=== PATIENT | male | born 1950 | race Caucasian/White ===

== ENCOUNTER 2019-10-29 11:42 | Inpatient (IN) ==
[2019-10-29] MEDS ORDERED: XYLOCAINE 2% VISCOUS ONE (12:49)
[2019-10-29] MEDS ORDERED: ZOFRAN IV ONE (12:50)
[2019-10-29] MEDS ORDERED: MORPHINE IV ONE (12:50)
[2019-10-29] MEDS ORDERED: XYLOCAINE 2% JELLY UROJECT TOP ONE (12:54)
[2019-10-29] MEDS ORDERED: XYLOCAINE 2% JELLY UROJECT ONE ×2 (13:00→13:03)
[2019-10-29 13:46] LABS: BASO# 0.01 X1000 (0.0-0.2); BASO% 0.1 % (0.0-0.8); HEMATOCRIT 26.3 % (42.0-52.0); HEMOGLOBIN 8.1 g/dL (14.0-18.0); IMM GRAN# 0.02 X1000 (0.0-0.04); IMM GRAN% 0.2 % (0.0-0.5); LYMPH# 0.68 X1000 (1.2-3.4); LYMPH% 5.7 % (20.5-51.1); MCH 29.2 PG (27-31); MCHC 30.8 g/dL (33-37); MCV 94.9 FL (81-99); MONO# 0.73 X1000 (0.11-0.59); MONO% 6.1 % (1.7-9.3); MPV 9.4 FL (7.4-10.4); NEUT# 10.46 X1000 (1.4-6.5); NEUT% 87.9 % (42.2-75.2); PLT 323 X1000 (130-400); RBC 2.77 XMIL (4.7-6.1); RDW 13.5 % (11.5-14.5)
[2019-10-29 13:57] LABS: URINE SOURCE CATH
[2019-10-29 14:00] LABS: CALCIUM 8.8 mg/dL (8.8-10.2); CREATININE 2.5 mg/dL (0.7-1.2); POTASSIUM 4.3 mmol/L (3.5-5.1); TOTAL BILIRUBIN 0.54 mg/dL (0.20-1.00)
[2019-10-29 14:00] LABS: COLOR BROWN; SP GRAVITY URINE 1.019; TURBIDITY URINE TURBID (CLEAR)
[2019-10-29 14:03] LABS: UR EPITHELIAL CELLS <10 /HPF (<10); URINE BACTERIA NEGATIVE /HPF; URINE RBC TNTC /HPF (<10); URINE WBC <10 /HPF (<10)
[2019-10-29 14:07] LABS: BILIRUBIN URINE NEGATIVE (NEGATIVE); BLOOD URINE LARGE (NEGATIVE); GLUCOSE URINE NEGATIVE (NEGATIVE); KETONE URINE 10 mg/dL (NEGATIVE); LEUKOCYTES URINE MODERATE (NEGATIVE); NITRITE URINE POSITIVE (NEGATIVE); PH URINE 6.5; PROTEIN URINE 300 mg/dL (NEGATIVE); UROBILINOGEN URINE 2 mg/dL (NORMAL)
[2019-10-29 14:09] LABS: URINE CASTS NONE SEEN
[2019-10-29 14:35] LABS: LYMPHS 8 % (21-51); MONO 4 % (1-9); SEGS 88 % (42-75)
[2019-10-29] MEDS ORDERED: ROCEPHIN 1 GM in NS 50 ML IV ONE (15:32)
--- NOTE | 2019-10-29 15:44 | PROVIDER DOCUMENTATION ---
This chart was entered by Connie Bryan Scribe, acting as scribe for Regis Cramer MD. HPI-Male Problem - General Stated Complaint: MALE Time Seen by Provider: 10/29/19 11:58 Source: patient, family () Allergies/Adverse Reactions: Patient Allergies Allergy/AdvReac Type Severity Reaction Status Date / Time No Known Allergies Allergy Verified 10/29/19 12:12 Home Medications: Home Medication List Medication Instructions Recorded Confirmed Last Taken Type Aspirin 325 mg PO DAILY 10/29/19 10/29/19 Unknown History Cephalexin [Keflex] 500 mg PO 4XDAY #20 cap 10/29/19 Unknown Rx Citalopram [Celexa] 40 mg PO DAILY 10/29/19 10/29/19 Unknown History Ezetimibe [Zetia] 10 mg PO DAILY 10/29/19 10/29/19 Unknown History Ferrous Sulfate [Ferosul] 325 mg PO BID #60 tab 10/29/19 Unknown Rx Levocarnitine [l-Carnitine] 25 gm MC DAILY 10/29/19 10/29/19 Unknown History Niacin E.r. [Niaspan] 500 mg PO DAILY 10/29/19 10/29/19 Unknown History Psyllium Husk [Metamucil] 1 ea PO DAILY 10/29/19 10/29/19 Unknown History Simvastatin 20 mg PO DAILY 10/29/19 10/29/19 Unknown History Tamsulosin [Flomax] 0.4 mg PO DAILY #7 cap 10/29/19 Unknown Rx Telmisartan [Micardis] 40 mg PO DAILY 10/29/19 10/29/19 Unknown History Temazepam [Restoril] 30 mg PO QHS 10/29/19 10/29/19 Unknown History - History of Present Illness-Male Nature of Presenting Problem: 69 yowm presents to the ed with c/o unable to urinate. pt has AAA repair 12 days prior (incision was in rt groin) and was sent home with a [facility] cath. at bedside sts pt has some confused once back home and pulled cath out himself. sts called urology and was told to watch pt and as long as urination was well they could keep the cath out. sts last night some mild hematuria was noted but no pain nad urination was present. this am sts pt woke and passed a golf ball size clot and has been unable to urinate since waking this am. pt on exam is pale and abdomen is distended. Location of Complaint: reports: suprapubic Quality of Pain: reports: fullness Severity in ED: reports: moderate Onset/Duration: reports: this morning Timing: reports: still present, constant Context/Activities at Onset: reports: light activity Urinary Symptoms: reports: hematuria, retention Sexual intercourse history: reports: Not Active Contraception: reports: none Associated Symptoms: reports: denies symptoms Similar Symptoms Previously?: No Recently seen or treated by another doctor?: Yes (sx-Dr Cha urology-Dr Green) Review of Systems - Adult - REVIEW OF SYSTEMS - ADULT Constitutional: denies: chills, fever Eyes: reports: no symptoms reported Ears, Nose, Mouth & Throat: reports: no symptoms reported Cardiovascular: denies: chest pain, palpitations Respiratory: denies: cough, shortness of breath, wheezing Gastrointestinal: reports: see HPI, abdominal pain. denies: diarrhea, nausea, vomiting Genitourinary: reports: see HPI, hematuria, urinary retention Musculoskeletal: denies: back pain, neck pain Integumentary: reports: no symptoms reported Neurological: reports: no symptoms reported Psychiatric: reports: no symptoms reported Endocrine: reports: no symptoms reported Hematologic/Lymphatic: reports: no symptoms reported Allergic/Immunologic: reports: no symptoms reported All Other Systems: Reviewed and Negative Past History - Adult - PAST MEDICAL HISTORY-ADULT Review of Records: reports: Old Records Reviewed, Nursing Assessment Review, Medications Reviewed, Social history reviewed & non-contributory. Major Childhood Illnesses: reports: denies history Cardiovascular: reports: other (AAA) Respiratory: reports: denies history Gastrointestinal: reports: denies history Genitourinary: reports: denies history Musculoskeletal: reports: denies history Neurological: reports: denies history Psychiatric: reports: denies history Endocrine/Immune: reports: denies history Other Conditions: reports: denies history - PRIOR SURGERIES/PROCEDURES Surgical/Procedure History: reports: recent surgery (for AAS repair 12 days prior previous) - IMMUNIZATION STATUS Childhood Immunizations: See Nurse Assessment Flu Vaccine: See Nurse Assessment - FAMILY HISTORY Family History: reviewed, not pertinent - SOCIAL HISTORY Smoking: denies Substance Use: denies Living Situation: family Physical Exam-General - PHYSICAL EXAM-ADULT Initial Vital Signs Reviewed: Yes - CONSTITUTIONAL General Appearance: appears well, alert, mild distress - EYES Eyes: PERRL/EOMI, pink conjunctivae - HEAD, EARS, NOSE, MOUTH & THROAT HENMT: moist mucous membranes - NECK Neck: non-tender, full range of motion, supple, normal inspection - RESPIRATORY Respiratory: chest non-tender, lungs clear, normal breath sounds - CARDIOVASCULAR Cardiovascular: normal peripheral pulses, regular rate, rhythm - CHEST (BREASTS) Chest/Breast: deferred - GASTROINTESTINAL (ABDOMEN) Abdominal Exam: soft, distended, tenderness (with fullness sensation due to lack of urination) - GENITOURINARY Male Genitalia: other (wll healing surgical incision from recent sx) Rectal Exam: deferred Hemoccult Exam: deferred - LYMPHATIC Lymphatic: no adenopathy - MUSCULOSKELETAL Back Exam: no CVA tenderness, no vertebral tenderness Extremity: normal range of motion, non-tender, normal capillary refill - SKIN Integumentary: warm/dry, ecchymosis (seen to left pelvic region), pallor - NEUROLOGIC Neurologic: grossly normal - PSYCHIATRIC Psych/Mental Status: normal mood/affect, normal thought content, normal thought process, oriented x 3 Progress - PLAN OF CARE/RESULTS Progress/Plan/Lab Results: Vital Signs - 8 hr 10/29/19 12:08 Temperature 98.3 F Pulse Rate 76 Respiratory Rate 17 Blood Pressure 150/83 O2 Sat by Pulse Oximetry 99 Laboratory Results - last 24 hr 10/29/19 10/29/19 10/29/19 13:00 13:00 13:30 WBC 11.90 H RBC 2.77 L Hgb 8.1 L Hct 26.3 L MCV 94.9 MCH 29.2 MCHC 30.8 L RDW Std Deviation 13.5 Plt Count 323 MPV 9.4 Immature Gran % (Auto) 0.2 Neut % (Auto) 87.9 H Lymph % (Auto) 5.7 L Coffey % (Auto) 6.1 Eos % (Auto) 0.0 Baso % (Auto) 0.1 Immature Gran # (Auto) 0.02 Neut # (Auto) 10.46 H Lymph # (Auto) 0.68 L Coffey # (Auto) 0.73 H Eos # (Auto) 0.00 Baso # (Auto) 0.01 Segmented Neutrophils 88 H Lymphocytes 8 L Monocytes 4 Sodium 139 Potassium 4.3 Chloride 104 Carbon Dioxide 22 L Anion Gap 13 BUN 23 H Creatinine 2.5 H Estimated GFR/1.73 m2 26 BUN/Creatinine Ratio 9 Glucose 122 H Calculated Osmolality 283 Calcium 8.8 Total Bilirubin 0.54 AST 12 ALT 14 Alkaline Phosphatase 71 Total Protein 6.0 L Albumin 3.0 L Globulin 3.0 Albumin/Globulin Ratio 1.0 Urine Source CATH Urine Color BROWN Urine Turbidity TURBID Urine pH 6.5 Ur Specific [place] 1.019 Urine Protein 300 A Ur Glucose (Stick) NEGATIVE Ur Ketones (Stick) 10 A Urine Blood LARGE A Urine Nitrite POSITIVE A Urine Bilirubin NEGATIVE Urobilinogen Dipstick 2 A Urine Leukocytes MODERATE A Urine WBC (Auto) <10 Urine RBC (Auto) TNTC A U Epithel Cells (Auto) <10 Urine Bacteria (Auto) NEGATIVE Urine Crystals Not Reportable Small Round Cells Not Reportable Urine Casts NONE SEEN Urine Yeast-like Cells Not Reportable Orders Category Date Time Status Bladder Scan and Record Result ORDERED Care 10/29/19 12:03 Active [facility] Insertion ORDERED Care 10/29/19 12:04 Active Irrigate Bladder DIRECTED Care 10/29/19 12:03 Active CBC WITH ELECTRONIC DIFF [HEME] Stat Lab 10/29/19 13:00 Completed COMPREHENSIVE METABOLIC PANEL [CHEM] Stat Lab 10/29/19 13:00 Completed URINALYSIS W/POSS RFLX CULT [URINALYSIS] Stat Lab 10/29/19 13:30 Completed URINE CULTURE [RM] Routine Lab 10/29/19 13:30 Received URINE MANUAL MICROSCOPIC [URINALYSIS] Stat Lab 10/29/19 13:30 Completed CefTRIAXONE [Rocephin] 1 gm Med 10/29/19 15:32 Active 0.9% Sodium Chloride Inj [Ns] 50 ml IV NOW Lidocaine 2% Jelly Appl [Xylocaine 2% Jelly Uroject] Med 10/29/19 13:03 Discontinued 10 ml .ROUTE .STK-MED ONE Lidocaine 2% Jelly Appl [Xylocaine 2% Jelly Uroject] Med 10/29/19 12:54 Discontinued 20 ml TOP NOW ONE Lidocaine 2% Jelly Appl [Xylocaine 2% Jelly Uroject] Med 10/29/19 13:00 Discontinued 30 ml .SEE ORDER DIRECTOR CORPORATE SALES ONE Lidocaine 2% Viscous [Xylocaine 2% Viscous] Med 10/29/19 12:49 Discontinued 30 ml .SEE ORDER DIRECTOR CORPORATE SALES ONE Morphine Med 10/29/19 12:50 Discontinued 4 mg IV NOW ONE Ondansetron [Zofran] Med 10/29/19 12:50 Discontinued 4 mg IV NOW ONE Result Diagrams: 10/29/19 13:00 10/29/19 13:00 - REASSESSMENT Reassessment #1 Time Reassessed: 12:42 (pt has greater then 1000 on bladder scan and unable to urinate ) Status: unchanged Reassessment #2 Time Reassessed: 15:33 Status: improving (Dr. Wong put 3 way kaiser catheter in, and bladder was irrigated until clear. Given IV rocephin. Wants to follow-up with his primary doctor and urologist in [place].) - CONSULTS/PCP/HOSPITALIST Notification #1 *Consult/PCP/Hospitalist*: urology dr wong Time Discussed: 12:48 Reason/Comments: unable to urinate #2 Consult: Tyrell PCP, called at 1537 Time Discussed: 15:40 (returned call and agrees that pt can f/u with dr santillan next week and then f/u with urology and see maybe monday ) Reason/Comments: labs reviewed with him Departure - Departure Date of Disposition Decision: 10/29/19 Time of Disposition Decision: 15:34 DIAGNOSIS: Acute urinary retention, Urinary tract infection in male, Renal insufficiency syndrome Anemia Qualifiers: Anemia type: unspecified type Qualified Code(s): D64.9 - Anemia, unspecified Disposition: HOME 01 Certified Medical Emergency: Emergent Condition: Stable Additional Instructions: drink plenty of clear fluids. You need repeat labs, including blood count and renal function at your doctor's in next week. Return to ER for continued u rinary retention, fever or worsening of symptoms. ED Follow Up Instructions: You have been treated by a care provider in the Emergency Department. These instructions are being provided to you so you can have an understanding of how to care for yourself upon discharge. Upon discharge from the Emergency Department, you are responsible for making arrangements for follow-up care by a physician of your choice. Take all prescribed medications as directed. Return to the Emergency Department immediately for any new or worsening symptoms. You may call the Physician Referral phone number at [phone] to obtain a list of Physicians who are taking new patients. Prescriptions: Ferrous Sulfate [Ferosul] 325 mg PO BID #60 tab Prescription Printed Tamsulosin [Flomax] 0.4 mg PO DAILY #7 cap Prescription Printed Cephalexin [Keflex] 500 mg PO 4XDAY #20 cap Prescription Printed Referrals and Follow-Ups: Ana Santillan MD [Primary Care Provider] - Call for Appoint. -1 week (to recheck blood counts and renal function) Keyon Black MD [NON-STAFF PROVIDER] - Call for Appoint. 1-2days (for kaiser/prostate recheck) Discharge Education: Indwelling Urinary Catheter Care, Adult, [id number], Acute Urinary Retention, Male, [id number], Urinary Tract Infection, Adult, [id number], Acute Kidney Injury, Adult, Anemia - Critical Care Note This patient required my direct & personal management of CC.: No Attestation - Physician/ AJIT Attestation Patient care was provided by Advanced Practice Provider:: No The physician spent face to face time with patient:: Yes Advanced Practice Provider documentation review:: Supervising physician onsite and consulted in the evaluation and care of this patient. The physician did have a face to face encounter with the patient. This chart was documented by the indicated scribe, (Connie Bryan Scribe) and accurately reflects the services I performed and decisions made by me, Regis Cramer MD, as attested by the provider's signature.
--- NOTE | 2019-10-29 18:02 | Diag Imaging Result Doc PS360 ---
EXAM: CT HEAD W/O CONTRAST INDICATION: altered mental status TECHNIQUE: This exam was performed using automated exposure control, adjustment of mA or kV according to patient size, and/or use of iterative reconstruction technique. COMPARISON: None. FINDINGS: There is mild to moderate diffuse brain atrophy. There is no definite acute infarct given the limited sensitivity of CT versus MRI. There is no discrete intracranial mass, mass effect, or intracranial hemorrhage. The surrounding soft tissues and bony structures are essentially unremarkable. IMPRESSION: Diffuse brain atrophy but no evidence of acute intracranial pathology by CT. Electronically signed by Jose Luis Garland 10/29/2019 5:59 PM
[2019-10-29] MEDS ORDERED: SODIUM CHLORIDE 0.9% INJ PRN (19:53)
[2019-10-29] MEDS ORDERED: TOBRAMYCIN 80 MG in NS 50 ML IV ONE (19:53)
[2019-10-29] MEDS ORDERED: TYLENOL PO PRN (19:53)
[2019-10-29] MEDS ORDERED: PHENERGAN IV PRN (19:53)
[2019-10-29] MEDS: LEVAQUIN 250 MG/D5W 250 MG/50 ML IVPB IV SCH (20:26)
[2019-10-29] MEDS: NS 1,000 ML IV SCH (20:27)
--- NOTE | 2019-10-29 21:14 | CONSULTATION ---
DATE OF CONSULTATION: 10/29/2019 CHIEF COMPLAINT: Can't void. HISTORY OF PRESENT ILLNESS: This 69-year-old male was having obstructive and irritative voiding symptoms. He had a CT scan of the abdomen obtained that revealed a greater than 6 cm abdominal aortic aneurysm. He underwent aortic stent placement but developed postop urinary retention. A Traylor catheter was placed and it was removed while he was in the intensive care unit. He could not void and a Traylor catheter was replaced. He removed the Traylor catheter with the balloon still inflated in a moment of confusion. He developed gross hematuria and then could not void. In the emergency room his postvoid residual was greater than 1000 mL. Emergency room personnel attempted to place a Traylor catheter without success. The patient's states he has been confused since he had the aortic stent placed last week. She feels that it is due to the post anesthesia effects and pain medication. She states it is uncharacteristic of him to be confused as much as he is. PAST MEDICAL HISTORY: Peripheral vascular disease, coronary artery disease. CURRENT MEDICATIONS: Documented on his chart. PAST SURGICAL HISTORY: See HPI. 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 No recent tobacco use. Social alcohol use. ALLERGIES: No known drug allergies. PHYSICAL EXAMINATION: General: A normally developed, well-nourished, age apparent, white male, who is cooperative. HEENT: Normal for age. Lungs: Clear. Cardiovascular: Regular rate and rhythm. Abdomen: Mildly protuberant. Direct tenderness in the suprapubic area and his bladder is palpable in the suprapubic area. : Uncircumcised male. Foreskin retracts. Both testes are down. Scrotal exam is normal. Extremities: Resolving contusion in the left inguinal area. No cyanosis, clubbing or edema. Neurologic: No focal deficits. IMPRESSION: 1. Traylor catheter trauma. 2. Urinary retention secondary to clots. PLAN: 1. The patient had 30 mL of 2% viscous lidocaine placed in the urethra and held for 5 minutes. He was then prepped and draped sterilely for Traylor catheter placement. A 24- [address] way hematuria catheter was passed through the patient's urethra, prostate, and into the bladder with some difficulty. After the catheter was able to be pushed all the way in, return of burgundy colored urine and small clots occurred, and 10 mL sterile water were placed in the Traylor's balloon. Continuous bladder irrigation of normal saline was started. He appeared to tolerate this well. Thank you for this consultation. cc: MD Bernice Rosen MD MTDD
[2019-10-29] MEDS: ZOCOR PO SCH (21:41)
[2019-10-29] MEDS: RESTORIL PO SCH (21:41)
[2019-10-30 07:45] LABS: AGAP 7; BUN 10 mg/dL (8-22); CHLORIDE 102 mmol/L (98-107); COSMO 271; CREATININE 0.8 mg/dL (0.7-1.2); ESTIMATED GFR > 60; GLUCOSE 106 mg/dL (70-104); POTASSIUM 4.3 mmol/L (3.5-5.1); SODIUM 136 mmol/L (136-145); TCO2 27 mmol/L (25-35)
[2019-10-30] MEDS ORDERED: ASPIRIN PO SCH (09:00)
[2019-10-30] MEDS: NS 1,000 ML IV SCH (09:17)
[2019-10-30] MEDS: FLOMAX PO SCH ×2 (09:22→21:43)
[2019-10-30] MEDS: ZETIA PO SCH (09:22)
[2019-10-30] MEDS: MICARDIS PO SCH (09:22)
[2019-10-30] MEDS ORDERED: VANCOMYCIN 1 GM/NS 1 GM/250 ML IVPB IV ONE (09:51)
--- NOTE | 2019-10-30 10:23 | PROGRESS NOTE ---
DATE: 10/30/2019 SUBJECTIVE: Mr. Cardoza was admitted to [facility] with a metabolic encephalopathy. This morning, he seems much more lucid and interactive. He is oriented to name, place and year. He still had rambling speech and strange ideas about the Traylor catheter being attached to his bed. Urine cultures are growing out gram-positive cocci. He was also admitted with acute renal failure secondary to obstruction. A Traylor catheter has been placed. We rehydrated him with normal saline. His BUN and creatinine have normalized. He continues with persistent hematuria. OBJECTIVE: Vital signs: Temperature 98.3 degrees, pulse 67, respirations 20, BP 126/64. CV: Regular rate and rhythm. Lungs: Clear. Abdomen: Soft, nontender with active bowel sounds. No hepatosplenomegaly. No abdominal bruits. ASSESSMENT AND PLAN: 1. Acute urinary retention. He still has a Traylor catheter in place. Dr. Wong is irrigating the bladder due to the hematuria. The hematuria still persists. Because of the enlarged prostate, I have added Flomax 0.4 mg twice daily. 2. Acute renal failure. I suspect that his acute renal failure was due to post obstruction. We rehydrated him with normal saline and placed a Traylor. His kidney function has normalized. 3. Metabolic encephalopathy secondary to urinary tract infection, as well as uremia due to the acute renal failure. Clinically, he is better. We will continue Levaquin and bolus him with vancomycin pending urine cultures. Urine cultures grew out gram-positive cocci. 4. Hypertension. His blood pressure is stable. We will continue his current regimen of medications. cc: Bernice Santillan MD
--- NOTE | 2019-10-30 14:33 | HISTORY AND PHYSICAL ---
HISTORY: Mr. Miguel Ángel Cardoza is a 69 -year-old gentleman with a history of multiple medical problems including BPH, mixed hyperlipidemia and essential hypertension, who is well known to me. He recently underwent intravascular stenting of an abdominal aortic aneurysm. He was seen in the ER last week with acute urinary retention requiring a Traylor catheter. Over the weekend, he started having gross hematuria and was unable to void. He was noted to be in acute urinary retention and a Traylor was placed. His family reports that he has been more confused and disoriented. He has been talking out of his head at times. He is somewhat confused as to the events of the past several days. He was oriented to name and place. PAST MEDICAL HISTORY: Essential hypertension, gastroesophageal reflux disease, mixed hyperlipidemia. PAST SURGICAL HISTORY: Placement of an intravascular stent and an abdominal aortic aneurysm. ALLERGIES: No known drug allergies. FAMILY HISTORY: Noncontributory. SOCIAL HISTORY: He does consume alcoholic beverages. He has never smoked. He is and lives with his spouse. MEDICATIONS: Aspirin 325 mg daily, Celexa 40 mg daily, Zetia 10 mg at bedtime, simvastatin 20 mg at bedtime, Micardis 40 mg daily, Restoril 30 mg at bedtime p.r.n. insomnia. REVIEW OF SYSTEMS: He denies any recent weight gain or weight loss.HEENT: He wears glasses. CV: No chest pain, palpitations, or anginal equivalents. Pulmonary: No shortness of breath, paroxysmal nocturnal dyspnea, orthopnea. GI: No reflux, dysphagia, melena, hematochezia, change in bowel habits or rectal bleeding. Endocrine: No polyuria, no polydipsia. Skin: Skin no easy bruisability. : see history of present illness. Neuro: No migraines or seizures. PHYSICAL EXAMINATION: GENERAL: This is a well-developed, well-nourished, 69-year-old gentleman in no apparent distress. VITAL SIGNS: He is afebrile pulse 83 respirations 17, BP 134/75. HEENT: Fundi with arteriolar wall thickening. Pupils equal, round, reactive to light. Extraocular eye movements intact. NECK: Supple. No masses, JVD or bruits. CV: Regular rate and rhythm. LUNGS: Clear. ABDOMEN: Mild tenderness over the bladder. No rebound or guarding. He has no hepatosplenomegaly. EXTREMITIES: Without edema. SKIN: No palpable purpura. NEUROLOGIC: He moves all extremities grossly. He is alert and oriented to name and place. He is not able to follow a conversation. He has had strange thoughts and ideas. He moves all extremities grossly. ASSESSMENT AND PLAN: 1. Metabolic encephalopathy. He does seem mildly confused and somewhat discombobulated. I suspect it is multifactorial in etiology including recent anesthesia, acute renal failure an underlying urinary tract infection. A CT scan showed generalized atrophy. I will begin Levaquin pending blood cultures and urine culture. He does not appear to have sepsis at this point in time. We will rehydrate him with normal saline and recheck a BMP in the morning following placement of the Traylor catheter. 2. Acute renal failure due to acute urinary retention. I suspect his renal failure is postobstructive in nature. We will rehydrate him with normal saline, place a Traylor and recheck a BMP in the morning. 3. Acute urinary retention. I will begin Flomax 0.4 mg b.i.d. We have consulted Dr. Wong for irrigation of the bladder due to the hematuria. I suspect the hematuria is due to trauma when he pulled the Traylor out. DISPOSITION: Given his comorbid condition and clinical presentation, I believe that admission to the hospital is both reasonable and necessary. I anticipate that he will be in the hospital for at least 2 midnights and I will therefore place him in inpatient status. We will hold Lovenox given active bleeding. cc: Bernice Santillan MD
[2019-10-30] MEDS: RESTORIL PO SCH (21:43)
[2019-10-30] MEDS: ZOCOR PO SCH (21:44)
[2019-10-30] MEDS: LEVAQUIN 250 MG/D5W 250 MG/50 ML IVPB IV SCH (21:44)
[2019-10-31] MEDS ORDERED: VANCOMYCIN 1 GM/NS 1 GM/250 ML IVPB IV ONE (06:15)
--- NOTE | 2019-10-31 07:21 | PROGRESS NOTE ---
DATE: 10/31/2019 SUBJECTIVE: Mr. Cardoza is awake and easily arousable. He seems much more engaged and interactive with people. He is oriented to name, place, and time. Blood pressure is stable. He denies any chest pain, palpitations, or anginal equivalents. He is voiding freely. Renal function has normalized. He is still having some slight hematuria. OBJECTIVE: Vital Signs: Temperature 98.1 degrees, pulse 69, respirations 20, blood pressure 115/76. Cardiovascular: Regular rate and rhythm. Lungs: Clear. Abdomen: Soft and nontender with active bowel sounds. No hepatosplenomegaly. No abdominal bruits. Back: No CVA tenderness. ASSESSMENT AND PLAN: 1. Metabolic encephalopathy secondary to acute renal failure and urinary tract infection. Clinically, he continues to improve neurologically. I believe that he is approaching his baseline neurologically. Renal dysfunction has resolved with placement of a Traylor catheter. Urine cultures are growing out gram-positive cocci. I will bolus him with vancomycin and continue Levaquin. Blood cultures are negative. 2. Hypertension. Blood pressure is stable. We will continue him on Micardis. 3. Acute urinary retention and gross hematuria secondary to trauma. We will continue to flush and irrigate the bladder, and I have increased the Flomax to 0.4 mg twice daily. I suspect that he may have to go home with the Traylor catheter to allow the Flomax to have time to develop clinical efficacy. cc: Bernice Santillan MD
[2019-10-31] MEDS: FLOMAX PO SCH ×2 (09:19→19:59)
[2019-10-31] MEDS: MICARDIS PO SCH (09:20)
[2019-10-31] MEDS: ZETIA PO SCH (09:20)
[2019-10-31] MEDS: NS 1,000 ML IV SCH ×2 (14:26→16:42)
[2019-10-31] MEDS: RESTORIL PO SCH (19:59)
[2019-10-31] MEDS: LEVAQUIN 250 MG/D5W 250 MG/50 ML IVPB IV SCH (19:59)
[2019-10-31] MEDS: ZOCOR PO SCH (19:59)
--- NOTE | 2019-11-01 06:35 | PROGRESS NOTE ---
DATE: 11/01/2019 SUBJECTIVE: Mr. Cardoza sustained trauma when he yanked his Traylor out with the bulb inflated. His hematuria had largely resolved. Last night, he began passing clots again. They resumed irrigation and hematuria has nearly resolved. He is awake and easily arousable. He is oriented to name, place, and time. He answers questions appropriately. Urine cultures are growing out 2 different gram-positive species. Blood pressure is well controlled. Systolic blood pressures are ranging from 135 to 140, whereas his diastolic blood pressures are ranging from 65 to 77. He denies any chest pain, palpitations, or anginal equivalents. OBJECTIVE: Temperature 98.6 degrees, pulse 77, respirations 18, and BP 140/77. CV: Regular rate and rhythm. Lungs: Clear. Abdomen: Soft and nontender with active bowel sounds. No hepatosplenomegaly. No abdominal bruits. ASSESSMENT AND PLAN: 1. Gross hematuria secondary to local trauma. The hematuria had resolved. He had more hematuria last night where he was passing clots. They have resumed the irrigation. The hematuria has largely resolved. I am not sure if he tried to pull the Traylor out again. The bleeding seemed to come from the meatus. 2. Urinary tract infection. We will continue Levaquin and vancomycin pending cultures. The encephalopathy due to the underlying urinary tract infection and acute renal failure has largely resolved. 3. Hypertension. Blood pressure is stable. We will continue his current regimen of medications. cc: Bernice Santillan MD
[2019-11-01] MEDS: NS 1,000 ML IV SCH ×2 (06:45→21:11)
[2019-11-01] MEDS: ZETIA PO SCH (09:47)
[2019-11-01] MEDS: MICARDIS PO SCH (09:47)
[2019-11-01] MEDS: FLOMAX PO SCH ×2 (09:47→21:08)
[2019-11-01 20:03] LABS: BASO# 0.02 X1000 (0.0-0.2); BASO% 0.2 % (0.0-0.8); EOS# 0.18 X1000 (0.0-0.7); EOS% 1.7 % (0.0-10.0); HEMATOCRIT 24.3 % (42.0-52.0); HEMOGLOBIN 7.4 g/dL (14.0-18.0); IMM GRAN# 0.03 X1000 (0.0-0.04); IMM GRAN% 0.3 % (0.0-0.5); LYMPH# 1.68 X1000 (1.2-3.4); LYMPH% 15.4 % (20.5-51.1); MCHC 30.5 g/dL (33-37); MCV 95.3 FL (81-99); MONO# 0.62 X1000 (0.11-0.59); MONO% 5.7 % (1.7-9.3); MPV 9.2 FL (7.4-10.4); NEUT# 8.37 X1000 (1.4-6.5); NEUT% 76.7 % (42.2-75.2); PLT 443 X1000 (130-400); RBC 2.55 XMIL (4.7-6.1); RDW 13.2 % (11.5-14.5)
[2019-11-01] MEDS: ZOCOR PO SCH (21:07)
[2019-11-01] MEDS: RESTORIL PO SCH (21:08)
[2019-11-02 07:00] LABS: BASO# 0.02 X1000 (0.0-0.2); BASO% 0.3 % (0.0-0.8); EOS# 0.29 X1000 (0.0-0.7); EOS% 3.8 % (0.0-10.0); HEMATOCRIT 20.9 % (42.0-52.0); HEMOGLOBIN 6.4 g/dL (14.0-18.0); IMM GRAN# 0.02 X1000 (0.0-0.04); IMM GRAN% 0.3 % (0.0-0.5); LYMPH# 1.62 X1000 (1.2-3.4); LYMPH% 21.4 % (20.5-51.1); MCH 29.1 PG (27-31); MCHC 30.6 g/dL (33-37); MONO# 0.37 X1000 (0.11-0.59); MONO% 4.9 % (1.7-9.3); NEUT# 5.26 X1000 (1.4-6.5); NEUT% 69.3 % (42.2-75.2); PLT 378 X1000 (130-400); RDW 13.2 % (11.5-14.5); WBC 7.58 X1000 (4.8-10.8)
[2019-11-02 07:19] LABS: AGAP 7; BUN 11 mg/dL (8-22); CALCIUM 8.2 mg/dL (8.8-10.2); CHLORIDE 108 mmol/L (98-107); COSMO 281; CREATININE 0.7 mg/dL (0.7-1.2); ESTIMATED GFR > 60; GLUCOSE 107 mg/dL (70-104); POTASSIUM 3.9 mmol/L (3.5-5.1); SODIUM 141 mmol/L (136-145); TCO2 26 mmol/L (25-35)
[2019-11-02] MEDS ORDERED: NS 500 ML IV ONE (08:40)
[2019-11-02] MEDS ORDERED: ROBINUL ONE ×2 (10:09→14:25)
[2019-11-02] MEDS ORDERED: XYLOCAINE-MPF 2% ONE (10:09)
[2019-11-02] MEDS ORDERED: DIPRIVAN 1% ONE (10:10)
[2019-11-02] MEDS ORDERED: VERSED ONE (13:03)
[2019-11-02] MEDS ORDERED: FENTANYL ONE (13:43)
[2019-11-02] MEDS ORDERED: LEVAQUIN 500 MG/D5W 500 MG/100 ML IVPB IV ONE (13:48)
[2019-11-02] MEDS ORDERED: LEVAQUIN 500 MG/D5W 500 MG/100 ML IVPB ONE (13:49)
[2019-11-02] MEDS ORDERED: ZOFRAN ONE (13:59)
[2019-11-02] MEDS ORDERED: OFIRMEV 1000 MG/ISOTONIC SOLN 1,000 MG/100 ML BOTTLE ONE (14:00)
--- NOTE | 2019-11-02 16:30 | OPERATIVE NOTE ---
PROCEDURE DATE: 11/02/2019 SURGEON: Desmond Wong MD. PREOPERATIVE DIAGNOSIS: Traylor catheter trauma resulting in clot retention and urethral bleeding. POSTOPERATIVE DIAGNOSIS: Traylor catheter trauma resulting in clot retention and urethral bleeding. PROCEDURE PERFORMED: Cystoscopic exam, clot irrigation, cauterize bleeding areas, place Traylor catheter. ANESTHESIA: General via laryngeal mask. FINDINGS: Cystoscopic exam: Urethra greater than 22-Slovak without stricture. There was evidence of Traylor catheter trauma in the proximal pendulous urethra as well as significant clot and bleeding areas in the bulbar urethra. Prostate-coapting lateral lobes, elevated bladder neck, length approximately 5 cm. There was a bleeding area at the bladder neck in the midline. There were clots in the bladder. After these were removed normal ureteral orifices bilaterally, some bullous edema consistent with an indwelling Traylor catheter. Grade 1 trabeculations. No diverticula. No papillary lesions. Rectal exam reveals a prostate of about 60 to 70 g, smooth, and symmetric. INDICATION FOR PROCEDURE: This 69-year-old male had an abdominal aortic aneurysm stent placed. Postoperatively he pulled out his Traylor catheter with the balloon inflated and he has had significant gross hematuria since. He had a 3-way Traylor catheter placed several days ago and the efflux from the Traylor catheter had cleared, however, he is having significant bleeding around the catheter. His hemoglobin this morning was 6.4. DESCRIPTION OF PROCEDURE: After informed consent was obtained from the patient and family and him receiving IV antibiotics, he was taken the main OR cystoscopy room, placed in the supine position. General anesthesia via laryngeal mask was achieved. He was then placed in the low lithotomy position and prepped and draped in the usual sterile fashion for cystoscopic exam. A 22-Slovak Traylor catheter was passed through the patient's urethra, prostate, and in the bladder with findings as noted above. A Fred syringe was used to irrigate clots from the bladder, approximately 100 mL of clot were removed. In the urethra the grasping forceps were placed and clots that were adherent in the proximal bulbar urethra were removed. This took several attempts and finally the clot was removed to get down to where the bleeding was occurring. The Bugbee electrode was placed and the bleeding spots in the proximal bulbar urethra were cauterized. As little cauterization as possible was used to stop the bleeding. There was 1 area in the proximal pendulous urethra that was oozing and this was likewise cauterized. The irrigant was stopped and no oozing was seen from the bulbar area or proximal pendulous area. The cystoscope was removed. A 22-Slovak, 3-way coude hematuria Traylor catheter was placed without difficulty, 30 mL sterile water placed in Traylor balloon. Traylor was placed to gravity drain. The efflux was clear. There was no bleeding around the catheter noted. Continuous bladder irrigation of normal saline was started. A rectal exam was performed. He tolerated the procedure well. Estimated blood loss during the case was 1 mL. He was taken to the recovery room in good condition. cc: MD Bernice Rosen MD
[2019-11-02] MEDS: LEVAQUIN PO SCH (18:39)
[2019-11-02] MEDS: ZETIA PO SCH (18:39)
[2019-11-02] MEDS: FLOMAX PO SCH ×2 (18:39→20:21)
[2019-11-02] MEDS: MICARDIS PO SCH (18:41)
[2019-11-02] MEDS: OFIRMEV 1000 MG/ISOTONIC SOLN 1,000 MG/100 ML BOTTLE IV SCH (20:21)
[2019-11-02] MEDS: ZOCOR PO SCH (20:21)
[2019-11-02] MEDS: RESTORIL PO SCH (20:21)
[2019-11-03] MEDS: OFIRMEV 1000 MG/ISOTONIC SOLN 1,000 MG/100 ML BOTTLE IV SCH ×2 (03:32→11:14)
[2019-11-03] MEDS: MICARDIS PO SCH (11:15)
[2019-11-03] MEDS: LEVAQUIN PO SCH (11:15)
[2019-11-03] MEDS: ZETIA PO SCH (11:16)
[2019-11-03] MEDS: PYRIDIUM PO SCH ×3 (11:16→17:48)
[2019-11-03] MEDS: FLOMAX PO SCH ×2 (11:16→21:49)
[2019-11-03 11:57] LABS: HEMOGLOBIN 8.5 g/dL (14.0-18.0)
[2019-11-03] MEDS ORDERED: SENOKOT PO ONE (13:37)
[2019-11-03] MEDS: RESTORIL PO SCH (21:49)
[2019-11-03] MEDS: ZOCOR PO SCH (21:49)
[2019-11-04 07:46] VITALS: BP 133/59
[2019-11-04 08:46] LABS: HEMATOCRIT 26.4 % (42.0-52.0); HEMOGLOBIN 8.1 g/dL (14.0-18.0)
[2019-11-04] MEDS: FLOMAX PO SCH (09:16)
[2019-11-04] MEDS: LEVAQUIN PO SCH (09:16)
[2019-11-04] MEDS: MICARDIS PO SCH (09:16)
[2019-11-04] MEDS: ZETIA PO SCH (09:16)
[2019-11-04] MEDS: PYRIDIUM PO SCH (09:16)
--- NOTE | 2019-11-05 14:30 | DISCHARGE SUMMARY ---
ADMISSION DATE: 10/29/2019 DISCHARGE DATE: 11/04/2019 DISCHARGE DIAGNOSES: 1. Metabolic encephalopathy. 2. Urinary tract infection. 3. Acute renal failure due to urinary retention. 4. Acute urinary retention secondary to benign prostatic hypertrophy. 5. Gross hematuria secondary to retained clot. DISCHARGE INSTRUCTIONS: 1. Return to clinic in 1 week to see me Dr. Jose Santillan. 2. Activity as tolerated. 3. Healthy heart diet. MEDICATIONS: Flomax 0.4 mg b.i.d., Levaquin 500 mg daily for 7 days, Tylenol 650 mg q. 6 hours as needed, aspirin 325 mg daily, Celexa 40 mg daily, Zetia 10 mg daily, simvastatin 20 mg at bedtime, temazepam 30 mg at bedtime, Niaspan 500 mg daily, Metamucil 1 p.o. daily, Micardis 40 mg daily. HOSPITAL COURSE: Mr. Miguel Ángel morrow was admitted to [facility] with increasing confusion and disorientation. We felt the encephalopathy was multifactorial in etiology. He was noted to have acute renal failure. His BUN and creatinine were 23 and 2.5 on admission. We rehydrated him with normal saline and placed a Traylor catheter. His renal function improved immediately. On hospital day #2 his BUN and creatinine were 10 and 0.8. His urinalysis was wildly positive. He was started on broad-spectrum antibiotics pending urine cultures. Urine cultures grew out enterococcus faecalis. He was transitioned to oral Levaquin and will complete an additional 7 day course of Levaquin as an outpatient. He did have acute urinary retention. He does have an enlarged prostate. On exam his prostate was 60 to 70 g. I started him on Flomax 0.[address] Wong was able to discontinue the Traylor and the patient was voiding freely at the time Of discharge without a Traylor. He had gross hematuria. We felt initially that the hematuria was from the trauma of pulling out a Traylor with the bulb still inflated. Dr. her Wong was consulted to see the patient. The bladder was irrigated. He continued to require irrigation because of hematuria. He did develop meatal bleeding associated with acute blood loss anemia requiring transfusions. Dr. Wong performed cystoscopy with removal of a retained clot. The hematuria resolved. Having reached maximum hospital benefit, the patient was discharged in stable condition. cc: Bernice Santillan MD
== END 2019-11-04 11:35 | disposition home or self-care (01) | DRG 662 ==
LOC: SUPCPDRO → ED 11:42 → 4N 18:50
PROVIDERS: ADMIT Internal Medicine; ATTEND Internal Medicine